=== PATIENT | male | born 2000 | race Two or more races ===

== ENCOUNTER 2021-02-05 20:49 | Emergency (ER) | payer MEDICAID, OTHER ==
--- NOTE | 2021-02-05 21:22 | EDM.PDOC ---
ED HPI GENERAL MEDICAL PROBLEM - General Chief Complaint: Upper Extremity Injury/Pain Stated Complaint: WRIST INJURY Time Seen by Provider: 02/05/21 21:15 Source of Information: Reports: Patient History Limitations: Reports: No Limitations - History of Present Illness INITIAL COMMENTS - FREE TEXT/NARRATIVE: 20-year-old male injured his left wrist when he jumped off a balcony and fell on his wrist. He has swelling and pain around the left wrist, no other injury. Onset: Sudden Duration: Hour(s): (Within the last hour) Location: Reports: Upper Extremity, Left Associated Symptoms: Reports: No Other Symptoms Left Wrist Pain Score (Numeric/FACES): 6 - Related Data Allergies Allergy/AdvReac Type Severity Reaction Status Date / Time No Known Allergies Allergy Verified 02/05/21 21:16 Home Meds: Home Meds NK [No Known Home Meds] 02/05/21 [History] Past Medical History - Infectious Disease History Infectious Disease History: Reports: Chicken Pox Social & Family History - Tobacco Use Tobacco Use Status *Q: Never Tobacco User Second Hand Smoke Exposure: No - Caffeine Use Caffeine Use: Reports: None - Alcohol Use Days Per Week of Alcohol Use: 2 Number of Drinks Per Day: 4 Total Drinks Per Week: 8 - Recreational Drug Use Recreational Drug Use: No Review of Systems - Review of Systems Review Of Systems: See Below Constitutional: Denies: Fever Respiratory: Reports: No Symptoms Cardiovascular: Reports: No Symptoms Musculoskeletal: Reports: Other (Left wrist pain is his only symptom) Skin: Denies: Bruising Neurological: Denies: Paresthesia ED EXAM, GENERAL - Physical Exam Exam: See Below Exam Limited By: No Limitations General Appearance: Alert, No Apparent Distress Head: Atraumatic Neck: Non-Tender Respiratory/Chest: Lungs Clear Cardiovascular: Regular Rate, Rhythm Extremities: Other (Diffuse swelling around the left wrist with significant tenderness to palpation and increased pain with any passive range of motion. Sensation to the fingers are intact) Neurological: Alert, Oriented Course - Vital Signs Last Recorded V/S: Last Vital Signs Temp 97.9 F 02/05/21 21:20 Pulse 102 H 02/05/21 21:20 Resp 16 02/05/21 21:20 BP 127/67 02/05/21 21:20 Pulse Ox 98 02/05/21 21:20 - Orders/Labs/Meds Orders: Active Orders 24 hr Category Date Time Status Fluoro Up To 1Hr [CR] Stat Exams 02/05/21 21:56 Taken Wrist Comp Min 3V Lt [CR] Stat Exams 02/05/21 21:21 Taken Meds: Medications Discontinued Medications Generic Name Dose Route Start Last Admin Trade Name Gianni PRN Reason Stop Dose Admin Sodium Chloride 1,000 mls @ 500 mls/hr 02/05/21 21:45 Normal Saline IV ASDIRECTED CRUZ Propofol 200 mg 02/05/21 21:41 Propofol 200 Mg/20 Ml Sdv IVPUSH 02/05/21 21:42 ONETIME ONE - Re-Assessments/Exams Free Text/Narrative Re-Assessment/Exam: 02/06/21 01:18 An x-ray showed a lunate dislocation of the left wrist as well as a likely metacarpal fracture. An IV was started, Dr. Solis was consulted and was kind enough to come in and assist with care of the patient. Consent was obtained for reduction of the wrist dislocation under propofol sedation. With 100 mg of IV propofol, patient was placed under adequate sedation, and the dislocation was reduced by Dr. Solis. Postreduction x-rays confirmed appropriate reduction, but also a scaphoid fracture. Short arm thumb spica splint was applied by Dr. Solis, he was placed in a sling, and recovered from anesthesia nicely. Copies of the films were given to the patient and he will follow up with orthopedics in 3 days when he [facility]. Departure - Departure Time of Disposition: 22:58 Disposition: Home, Self-Care 01 Clinical Impression: Fracture dislocation of left wrist Qualifiers: Encounter type: initial encounter Fracture type: closed Qualified Code(s): S62.102A - Fracture of unspecified carpal bone, left wrist, initial encounter for closed fracture Scaphoid fracture of wrist Qualifiers: Encounter type: initial encounter Scaphoid bone location: middle third Fracture type: closed Fracture alignment: displaced Laterality: left Qualified Code(s): S62.022A - Displaced fracture of middle third of navicular [scaphoid] bone of left wrist, initial encounter for closed fracture - Discharge Information Instructions: Metacarpal Fracture, [id number] Referrals: PCP,None [Primary Care Provider] - Forms: ED Department Discharge Care Plan Goals: Keep splint on your wrist and use sling for comfort, and take your x-rays to an orthopedic surgeon when you get home to discuss further treatment. Ibuprofen on a regular basis will be helpful. Sepsis Event Note (ED) - Evaluation Sepsis Screening Result: No Definite Risk - Focused Exam Vital Signs: Vital Signs Temp Pulse Resp BP Pulse Ox 02/05/21 21:20 97.9 F 102 H 16 127/67 98 02/05/21 21:13 97.9 F 102 H 16 127/67 98 - My Orders Last 24 Hours: My Active Orders 02/05/21 21:21 Wrist Comp Min 3V Lt [CR] Stat 02/05/21 21:56 Fluoro Up To 1Hr [CR] Stat - Assessment/Plan Last 24 Hours: My Active Orders 02/05/21 21:21 Wrist Comp Min 3V Lt [CR] Stat 02/05/21 21:56 Fluoro Up To 1Hr [CR] Stat
[2021-02-05] MEDS ORDERED: Propofol 200 MG/20 ML SDV IVPUSH ONE (21:41)
[2021-02-05] MEDS ORDERED: Sodium Chloride 0.9% 1,000 ML IV SCH (21:45)
--- NOTE | 2021-02-06 09:07 | CR ---
Wrist Comp Min 3V Lt CLINICAL HISTORY: Fall FINDINGS: Patient has a palmar displaced and rotated lunate. Scaphoid appears foreshortened. This may be positional. Impression: Lunate dislocation Foreshortening of the scaphoid. This may be positional. The fracture is not excluded. This will be reevaluated post reduction.
== END 2021-02-05 22:58 | disposition home or self-care (01) ==
LOC: JP.ED 20:49
DX: S62.022A Displaced fracture of middle third of navicular [scaphoid] bone of left wrist, initial encounter for closed fracture (principal); W13.0XXA Fall from, out of or through balcony, initial encounter
CPT/HCPCS: 25690; 73110; 76000; 99283; J2704; J7030